=== PATIENT | female | born 1950 | race Caucasian/White ===

== ENCOUNTER → 2016-09-06 | Outpatient (CLI) | payer MEDICARE | LOC: RAD 08:29 | PROVIDERS: ATTEND Surgery | DX: K57.32 Diverticulitis of large intestine without perforation or abscess without bleeding (principal) | CPT/HCPCS: 74177; 82565 ==

== ENCOUNTER → 2017-07-03 | Outpatient (CLI) | payer MEDICARE ==
--- NOTE | 2017-07-03 14:14 | RADIOLOGY REPORT (SQ) ---
EXAM DESCRIPTION: HIP RIGHT AP/LATERAL COMPLETED DATE/TIME: 07/03/2017 1:31 pm REASON FOR STUDY: TROCHANTERIC BURSITIS, RIGHT HIP (M70.61) M70.61 TROCHANTERIC BURSITIS, RIGHT HIP M54.2 CERVICALGIA M51.36 OTHER INTERVERTEBRAL DISC DEGENERATION, LUMBAR REGION COMPARISON: None. NUMBER OF VIEWS: Two views. TECHNIQUE: AP pelvis and additional frog-leg view of the right hip. LIMITATIONS: None. FINDINGS: MINERALIZATION: Normal. RIGHT HIP: No acute fracture dislocation. Degenerative changes are identified with subcortical cysti c changes being identified. LEFT HIP: No fracture or dislocation. No worrisome bone lesions. PUBIS AND ISCHIUM: No fracture. PELVIS: No fracture. SACRUM: No fracture or dislocation. No worrisome bone lesions. LOWER LUMBAR SPINE: No fracture or dislocation. No worrisome bone lesions. No significant disc disea se. SOFT TISSUES: No findings. OTHER: No other significant finding. IMPRESSION: No acute fracture or dislocation. Degenerative changes in the right hip articulation as noted above. Other findings as noted TECHNICAL DOCUMENTATION: JOB ID: [id number] [employer]- All Rights Reserved
--- NOTE | 2017-07-03 14:18 | RADIOLOGY REPORT (SQ) ---
EXAM DESCRIPTION: CERV SP 4 OR 5 VIEWS COMPLETED DATE/TIME: 07/03/2017 1:31 pm REASON FOR STUDY: CERVICALGIA (M54.2) M70.61 TROCHANTERIC BURSITIS, RIGHT HIP M54.2 CERVICALGIA M5 1.36 OTHER INTERVERTEBRAL DISC DEGENERATION, LUMBAR REGION COMPARISON: None. NUMBER OF VIEWS: Five views including obliques. TECHNIQUE: AP, lateral, obliques and odontoid radiographic images acquired of the cervical spine. LIMITATIONS: None. FINDINGS: MINERALIZATION: Normal. SEGMENTATION: Normal. ALIGNMENT: Normal. VERTEBRAE: Maintained height. No fracture or worrisome bone lesion. DISCS: Multilevel disc space narrowing with osteophytes, most pronounced at C4-C5 and C5-C6. POSTERIOR ELEMENTS: Pedicles and facets are intact. No posterior arch defects. Facet arthropathy is present. FORAMINA: Narrowed at the levels of maximal disc and facet disease. HARDWARE: None in the spine. PARASPINAL SOFT TISSUES: Normal. OTHER: No other significant finding. IMPRESSION: SPONDYLOSIS WITHOUT BONE LESION OR FRACTURE. TECHNICAL DOCUMENTATION: JOB ID: [id number] ([employer])- All Rights Reserved
--- NOTE | 2017-07-03 14:26 | RADIOLOGY REPORT (SQ) ---
EXAM DESCRIPTION: L SPINE WHOLE COMPLETED DATE/TIME: 07/03/2017 1:31 pm REASON FOR STUDY: LUMBAR DDD (M51.36) M70.61 TROCHANTERIC BURSITIS, RIGHT HIP M54.2 CERVICALGIA M5 1.36 OTHER INTERVERTEBRAL DISC DEGENERATION, LUMBAR REGION COMPARISON: None. NUMBER OF VIEWS: Five views including obliques. TECHNIQUE: AP, lateral, oblique, and sacral radiographic images acquired of the lumbar spine. LIMITATIONS: None. FINDINGS: MINERALIZATION: Normal. SEGMENTATION: Normal. No transitional anatomy. ALIGNMENT: There is some very minimal retrolisthesis of L4 in relation to L 5. The lumbar vertebra a re otherwise well-aligned. VERTEBRAE: Maintained height. No fracture or worrisome bone lesion. DISCS: There is some decrease in the L4-L5 disc space heights with associated osteophytic lipping. T here is some minimal anterior osteophytic lipping at other levels POSTERIOR ELEMENTS: Pedicles and facets are intact. No pars defect or posterior arch defects. HARDWARE: Surgical clips are identified in the right upper quadrant. PARASPINAL SOFT TISSUES: Normal. PELVIS: Intact as visualized. No fractures or worrisome bone lesions. SI joints intact. OTHER: No other significant finding. IMPRESSION: Minimal degenerative changes as noted above TECHNICAL DOCUMENTATION: JOB ID: [id number]- All Rights Reserved
== END ==
LOC: RAD 11:56
PROVIDERS: ATTEND Pain Medicine Pain Medicine
DX: M70.61 Trochanteric bursitis, right hip (principal); M54.2 Cervicalgia; M51.36 Other intervertebral disc degeneration, lumbar region
CPT/HCPCS: 72050; 72110

== ENCOUNTER 2018-04-16 05:52 | Day surgery (SDC) | payer MEDICARE ==
--- NOTE | 2018-04-09 20:23 | EKG REPORT ---
SEVERITY:- NORMAL ECG - SINUS RHYTHM : Confirmed by: Spencer Garcia 09-Apr-2018 20:22:40
[~2018-04-16 05:52] MED LIST: ACETAMINOPHEN 325 MG TABLET PO PRN; LACTATED RINGERS 1000 ML IV PRN; LIDOCAINE 0.5% INJ-PF (5 MG/ML) 50 ML SDV SUBCUT PRN
[2018-04-16] MEDS ORDERED: DIPHENHYDRAMINE HCL 50 MG/ML VIAL IV PRN ×2 (07:19→08:41)
[2018-04-16] MEDS ORDERED: FENTANYL CITRATE INJ/PF 100 MCG/2 ML AMPUL IV PRN ×6 (07:19→08:41)
[2018-04-16] MEDS ORDERED: PROMETHAZINE HCL INJ 25 MG/1 ML VIAL IV PRN ×4 (07:19→08:41)
[2018-04-16] MEDS ORDERED: ONDANSETRON HCL INJ/PF 4 MG/2 ML SDV IV PRN (08:41)
[2018-04-16] MEDS ORDERED: GLYCOPYRROLATE 1 MG/5 ML SYRINGE ONE (08:58)
--- NOTE | 2018-04-16 09:16 | Operative Report ---
Nonrecallable Operative Report DATE OF SURGERY: 04/16/18 PREOPERATIVE DIAGNOSIS: Screening for malignancy POSTOPERATIVE DIAGNOSIS: 1. Diverticulosis. 2. Large colon polyp in the cecum , removed piecemeal OPERATION: 1. Colonoscopy to the cecum. 2. Large cecal polyp, removed piecemeal. SURGEON: JEFFRY CORNEJO ANESTHESIA: LMAC TISSUE REMOVED OR ALTERED: Large colon polyp in the cecum, removed piecemeal COMPLICATIONS: 1. colonoscopy aborted early due to patient intolerance (the patient had multiple coughing fits and attempted to vomit). Due to these factors, it was felt most prudent to abort the colonoscopy early and repeat the exam in 3-6 months. 2. Poor visualization due to the patient's noncompliance with the bowel prep. ESTIMATED BLOOD LOSS: Minimal INTRAOPERATIVE FINDINGS: The patient did not complete her bowel prep. Visualization was poor. PROCEDURE: Procedure in detail: After informed consent was obtained, the patient was laid in the left lateral decubitus position in the operating room. The colonoscope was inserted up the rectum, sigmoid colon, descending colon, transverse colon, down the ascending colon, and into the cecum. The ileocecal valve and appendiceal orifice were identified. The prep was poor. There was a large amount of liquid stool retained inside the colon, adherent to the colonic wall. There were multiple diverticula noted throughout the exam. Once the cecum was reached, there was noted to be a large, frond-like polyp with a depressed, ulcerated center. This large polyp was removed in piecemeal fashion using hot snare polypectomy. A Erickson net was used to remove the polyp, as it would not suction through the scope. An attempt was made to reintroduce the scope to the cecum. The patient began having multiple coughing fits and attempted to vomit. Secondary to this, further colonoscopic examination was felt unwise. The scope was removed from the patient, and the procedure was concluded. All sponge , instrument, and needle counts were correct. Condition: Stable. Recommendation: Repeat colonoscopy in 3-6 months to evaluate the large cecal polyp, and evaluate the remainder of the colon.
--- NOTE | 2018-04-16 09:19 | Discharge Summary ---
Discharge Summary (SDC) - Discharge Final Diagnosis: Diverticulosis. Cecal polyp. Poor bowel prep. Date of Surgery: 04/16/18 Discharge Date: 04/16/18 Condition: Stable Treatment or Instructions: Discharge home. Diet as tolerated. Activity as tolerated. Follow-up with me in 2 weeks. Fiber supplement twice daily. Referrals: NANCY LANDAVERDE MD [Primary Care Provider] - Discharge Diet: As Tolerated Respiratory Treatments at Home: Deep Breathing/Coughing, Incentive Spirometer Discharge Activity: Activity As Tolerated, Balance Activity w/Rest Home Care Assistance: None Needed Report the Following to Your Physician Immediately: Shortness of Breath, Nausea , Vomiting, Increase in Pain, Fever over 101 Degrees, Unusual Bleeding
[2018-04-16 10:51] VITALS: BP 112/75
== END 2018-04-16 10:40 | disposition home or self-care (01) ==
LOC: END 05:52
PROVIDERS: ATTEND Surgery
DX: K57.30 Diverticulosis of large intestine without perforation or abscess without bleeding (principal); D12.0 Benign neoplasm of cecum; K58.2 Mixed irritable bowel syndrome; Z87.19 Personal history of other diseases of the digestive system; R53.82 Chronic fatigue, unspecified; E03.9 Hypothyroidism, unspecified; I10 Essential (primary) hypertension; M19.90 Unspecified osteoarthritis, unspecified site; K21.9 Gastro-esophageal reflux disease without esophagitis; Z87.891 Personal history of nicotine dependence; Z79.899 Other long term (current) drug therapy
CPT/HCPCS: 45385; 93005; 88305 ×2; 93010; J3490; 811

== ENCOUNTER 2018-04-26 08:23 | Emergency (ER) | payer MEDICARE ==
[2018-04-26 08:31] VITALS: BP 134/80
--- NOTE | 2018-04-26 08:52 | ER Document Report ---
ED General - General Chief Complaint: Foot Injury Stated Complaint: FOOT INJURY Time Seen by Provider: 04/26/18 08:44 Mode of Arrival: Ambulatory Information source: Patient Notes: 67-year-old female presents emergency department with complaints of right foot pain. Patient states that she was walking and believes she tripped last night. She fell down onto the ground. She states that she began having right foot pain afterwards. Patient states that she is unable to ambulate secondary to the pain. Patient states that there is some bruising to the right foot. She states that she is not on any anticoagulants. She denies any numbness or tingling. Patient has tried hydrocodone prior to arrival with minimal relief. TRAVEL OUTSIDE OF THE [place] IN LAST 30 DAYS: No - HPI Onset: Yesterday Onset/Duration: Sudden Quality of pain: Throbbing Severity: None Associated symptoms: None Exacerbated by: Standing, Movement, Walking Relieved by: Denies Similar symptoms previously: No Recently seen / treated by doctor: No - Related Data Allergies/Adverse Reactions: codeine Adverse Reaction (Severe, Verified 04/09/18 13:03) VOMITING meperidine [From Demerol] Adverse Reaction (Severe, Verified 04/09/18 13:03) severe migraine two or more doses Past Medical History - General Information source: Patient - Social History Smoking Status: Former Smoker Family History: Reviewed & Not Pertinent - Past Medical History Cardiac Medical History: Reports: Hx Hypertension - ON MEDS Denies: Hx Coronary Artery Disease, Hx Heart Attack Pulmonary Medical History: Reports: Hx Asthma - ?NO MEDS Denies: Hx Bronchitis, Hx COPD, Hx Pneumonia Neurological Medical History: Denies: Hx Cerebrovascular Accident, Hx Seizures Musculoskeletal Medical History: Reports Hx Arthritis - R HIP, BACK, NECK Past Surgical History: Reports: Hx Hysterectomy - Immunizations Hx Diphtheria, Pertussis, Tetanus Vaccination: Yes - NO BOOSTERS Hx Pneumococcal Vaccination: 07/07/16 Review of Systems - Review of Systems Constitutional: No symptoms reported EENT: No symptoms reported Cardiovascular: No symptoms reported Respiratory: No symptoms reported Gastrointestinal: No symptoms reported Genitourinary: No symptoms reported Musculoskeletal: Joint pain, Joint swelling Hematologic/Lymphatic: No symptoms reported Neurological/Psychological: No symptoms reported -: Yes All other systems reviewed and negative Physical Exam - Vital signs Vitals: Temp Pulse Resp BP Pulse Ox 97.7 F 78 16 134/80 H 98 04/26/18 08:30 04/26/18 08:30 04/26/18 08:30 04/26/18 08:30 04/26/18 08:30 - Notes Notes: PHYSICAL EXAMINATION: GENERAL: Well-appearing, well-nourished and in no acute distress. HEAD: Atraumatic, normocephalic. EYES: Pupils equal round and reactive to light, extraocular movements intact, conjunctiva are normal. ENT: Nares patent, oropharynx clear without exudates. Moist mucous membranes. NECK: Normal range of motion, supple without lymphadenopathy LUNGS: Breath sounds clear to auscultation bilaterally and equal. No wheezes rales or rhonchi. HEART: Regular rate and rhythm without murmurs Female : deferred Musculoskeletal: Tenderness to palpation of the right dorsum of the foot. 2+ dorsalis pedis and posterior tibialis pulses. NEUROLOGICAL: Cranial nerves grossly intact. Normal speech, normal gait. Normal sensory, motor exams PSYCH: Normal mood, normal affect. SKIN: Warm, Dry, normal turgor, contusion noted to the dorsum of the right foot. Course - Re-evaluation Re-evalutation: 04/26/18 10:22 XR obtained. Lisfrac fracture appreciated with minimal lateral subluxation. I contacted the orthopedic surgeon change control analyst, Dr. Fuller. He would like the patient splinted and placed on crutches. He says the patient will need surgery. He wants to wait for swelling to reduce prior to surgery. He will see the patient in the office this week. Patient already on hydrocodone for chronic pain. Patient took hydrocodone prior to arrival. Says she's allergic to pain medication other than hydrodone. Declines additional medication in the ED. Patient instructed to continue taking her hydrocodone for pain, to follow up with Dr. Fuller outpatient, and to return for worsening symptoms. - Vital Signs Vital signs: Temp Pulse Resp BP Pulse Ox 97.7 F 78 16 134/80 H 98 04/26/18 08:30 04/26/18 08:30 04/26/18 08:30 04/26/18 08:30 04/26/18 08:30 Discharge - Discharge Clinical Impression: Lisfranc fracture Condition: Good Disposition: HOME, SELF-CARE Instructions: Foot Fracture ([facility]) Referrals: NANCY LANDAVERDE MD [Primary Care Provider] - Follow up as needed JEAN BENNETT MD [ACTIVE STAFF] - Follow up as needed
--- NOTE | 2018-04-26 10:06 | RADIOLOGY REPORT (SQ) ---
EXAM DESCRIPTION: FOOT RIGHT COMPLETE COMPLETED DATE/TIME: 04/26/2018 9:39 am REASON FOR STUDY: trauma fell twisted right ankle, right ankle COMPARISON: None. NUMBER OF VIEWS: Three views. TECHNIQUE: AP, lateral and oblique radiographic images acquired of the right foot. LIMITATIONS: None. FINDINGS: MINERALIZATION: Normal. BONES: Distal tibia fibula talus calcaneus and tarsal bones appear intact there is an acute fracture at the base of the 2nd metatarsal, and at the bases of the 4th and 5th metatarsals worrisome for [place] injury. Moderate-sized plantar calcaneal spur JOINTS: No effusions. Normal alignment at the ankle mortise SOFT TISSUES: Mild medial and lateral soft tissue swelling soft tissue swelling. No foreign body. OTHER: No other significant finding. IMPRESSION: Acute fracture base of the 2nd metatarsal, and at the bases of the 4th and 5th metatarsa ls worrisome for Lisfranc injury. Ankle joint is intact. TECHNICAL DOCUMENTATION: JOB ID: [id number] [employer]- All Rights Reserved Reading location - IP/workstation name: [email or web address]
--- NOTE | 2018-04-26 10:08 | RADIOLOGY REPORT (SQ) ---
EXAM DESCRIPTION: ANKLE RIGHT COMPLETE COMPLETED DATE/TIME: 04/26/2018 9:39 am REASON FOR STUDY: trauma COMPARISON: None. NUMBER OF VIEWS: Three views. TECHNIQUE: AP, lateral, and oblique radiographic images acquired of the right foot LIMITATIONS: None. FINDINGS: MINERALIZATION: Normal. BONES: Acute fractures of the bases, 2nd 3rd 4th and 5th metatarsals from Lisfranc injury. JOINTS: Minimal lateral subluxation of the bases 2nd 3rd 4th and 5th metatarsals at the TMT joints. SOFT TISSUES: Diffuse forefoot soft tissue swelling. No foreign body. OTHER: Prominent plantar calcaneal spur IMPRESSION: Acute fractures of the bases of the 2nd 3rd 4th and 5th metatarsals. Minimal lateral subluxation of the 2nd 3rd 4th and 5th metatarsals at the TMT joints. TECHNICAL DOCUMENTATION: JOB ID: [id number] [employer]- All Rights Reserved Reading location - IP/workstation name: [email or web address]
== END 2018-04-26 11:01 | disposition home or self-care (01) ==
LOC: ER 08:23
PROC: 2W3SX1Z Immobilization of Right Foot using Splint (ICD-10-PCS; principal; 2018-04-26)
DX: S93.326A Dislocation of tarsometatarsal joint of unspecified foot, initial encounter (principal); M79.671 Pain in right foot; W01.0XXA Fall on same level from slipping, tripping and stumbling without subsequent striking against object, initial encounter; I10 Essential (primary) hypertension; Z79.899 Other long term (current) drug therapy
CPT/HCPCS: 99283

== ENCOUNTER 2018-05-21 05:36 | Inpatient (IN) | payer MEDICARE ==
[2018-05-15 11:24] LABS: HEMATOCRIT 38.7 % (36.0-47.0); HEMOGLOBIN 13.4 g/dL (12.0-15.5); MEAN CORPUSCULAR HGB CONC 34.7 g/dL (32.0-36.0); MEAN CORPUSCULAR VOLUME 89 fl (80-97); PLATELET COUNT 211 10^3/uL (150-450); RED BLOOD COUNT 4.33 10^6/uL (3.72-5.28); RED CELL DISTRIBUTION WIDTH 12.9 % (11.5-14.0); WHITE BLOOD COUNT 4.2 10^3/uL (4.0-10.5)
[2018-05-15 11:30] LABS: ALANINE AMINOTRANSFERASE 25 U/L (9-52); ALBUMIN 4.2 g/dL (3.5-5.0); ALKALINE PHOSPHATASE 94 U/L (38-126); ANION GAP 12 (5-19); ASPARTATE AMINO TRANSFERASE 24 U/L (14-36); BILIRUBIN,DIRECT 0.2 mg/dL (0.0-0.4); BLOOD UREA NITROGEN 11 mg/dL (7-20); CALCIUM 9.9 mg/dL (8.4-10.2); CARBON DIOXIDE 31 mmol/L (22-30); CHLORIDE 101 mmol/L (98-107); GLUCOSE 98 mg/dL (75-110); POTASSIUM 4.2 mmol/L (3.6-5.0); SODIUM 143.5 mmol/L (137-145); TOTAL PROTEIN 6.9 g/dL (6.3-8.2)
[2018-05-15 11:58] LABS: CARCINOEMBRYONIC ANTIGEN 3.9 ng/mL (<3.0)
--- NOTE | 2018-05-15 12:36 | RADIOLOGY REPORT (SQ) ---
EXAM DESCRIPTION: CHEST PA/LATERAL COMPLETED DATE/TIME: 05/15/2018 10:22 am REASON FOR STUDY: PRE-OP COMPARISON: None. EXAM PARAMETERS: NUMBER OF VIEWS: two views TECHNIQUE: Digital Frontal and Lateral radiographic views of the chest acquired. RADIATION DOSE: NA LIMITATIONS: none FINDINGS: LUNGS AND PLEURA: No opacities, masses or pneumothorax. No pleural effusion. MEDIASTINUM AND HILAR STRUCTURES: No masses or contour abnormalities. HEART AND VASCULAR STRUCTURES: Heart normal size. No evidence for failure. BONES: No acute findings. HARDWARE: Clips right upper quadrant post cholecystectomy OTHER: No other significant finding. IMPRESSION: NO SIGNIFICANT RADIOGRAPHIC FINDING IN THE CHEST. TECHNICAL DOCUMENTATION: JOB ID: [id number] [employer]- All Rights Reserved Reading location - IP/workstation name: [email or web address]
[~2018-05-21 05:36] MED LIST changes: -ACETAMINOPHEN 325 MG TABLET PO PRN; +CEFOXITIN SODIUM 2 GM in DEXTROSE 5%-WATER 100 ML IV PRN; +IBUPROFEN 800 MG in DEXTROSE 5%-WATER 250 ML IV PRN
[2018-05-21] MEDS ORDERED: BUPIVACAINE HCL 0.5 % INJ/PF 30 ML SDV ONE (06:48)
[2018-05-21] MEDS ORDERED: HYDROMORPHONE HCL INJ/PF 2 MG/ML AMPULE ONE (07:02)
[2018-05-21] MEDS ORDERED: FENTANYL CITRATE INJ/PF 100 MCG/2 ML AMPUL ONE (07:02)
[2018-05-21] MEDS ORDERED: PROPOFOL INJ 200 MG/20 ML VIAL IV ONE (07:03)
[2018-05-21] MEDS ORDERED: EPHEDRINE SULFATE INJ 50 MG/1 ML AMPULE ONE (07:03)
[2018-05-21] MEDS ORDERED: ACETAMINOPHEN 1,000 MG/100 ML RTUPB IV ONE (07:03)
[2018-05-21] MEDS ORDERED: LIDOCAINE 2% INJ-PF (20 MG/ML) 10 ML AMPUL ONE (07:03)
[2018-05-21] MEDS ORDERED: MIDAZOLAM 2 MG/2 ML INJ ONE (07:03)
[2018-05-21] MEDS ORDERED: PROMETHAZINE HCL INJ 25 MG/1 ML VIAL ONE (07:27)
[2018-05-21] MEDS ORDERED: FENTANYL CITRATE INJ/PF 100 MCG/2 ML AMPUL IV PRN ×3 (08:05)
[2018-05-21] MEDS ORDERED: DIPHENHYDRAMINE HCL 50 MG/ML VIAL IV PRN (08:05)
[2018-05-21] MEDS ORDERED: PROMETHAZINE HCL INJ 25 MG/1 ML VIAL IV PRN ×2 (08:05)
[2018-05-21] MEDS ORDERED: ONDANSETRON HCL INJ/PF 4 MG/2 ML SDV IV PRN (10:24)
[2018-05-21] MEDS ORDERED: HYDROMORPHONE HCL INJ/PF 2 MG/ML AMPULE IV PRN (10:31)
--- NOTE | 2018-05-21 10:53 | Operative Report ---
Nonrecallable Operative Report DATE OF SURGERY: 05/21/18 PREOPERATIVE DIAGNOSIS: Colon cancer of the cecum POSTOPERATIVE DIAGNOSIS: Same as above OPERATION: Laparoscopic right hemicolectomy SURGEON: JEFFRY CORNEJO ANESTHESIA: GA TISSUE REMOVED OR ALTERED: Right hemicolectomy COMPLICATIONS: None apparent ESTIMATED BLOOD LOSS: 25 cc PROCEDURE: Drains/implants: None. Procedure in detail: After informed consent was obtained, the patient was brought to the operating room and laid in the supine position. The area of the abdomen was prepped and draped in a normal sterile fashion. Incision was created in the supraumbilical position within the bounds of a previous scar. Dissection was carried through the subcutaneous tissue using sharp and blunt dissection. The linea alba fascia was incised sharply, the abdomen was entered sharply. The balloon trocar was inserted, and pneumoperitoneum was achieved. A suprapubic 5 mm trocar was placed as well as a left lower quadrant 12 mm trocar. Next attention was turned to lysing abdominal adhesions. There was omentum adherent to the anterior abdominal wall from the patient's prior surgeries. Once this was completed a right upper quadrant 5 mm trocar was placed. The cecum was grasped and retracted anteriorly. The right colic artery was then identified, dissected, and divided using the [place] stapling device. Next the harmonic scalpel was used to divide the mesentery of the small bowel up to the terminal ileum. The terminal ileum was then divided, again using the [place] 60 stapling device. Next the mesentery of the right colon was elevated away from the retroperitoneum. This was done with great care so as not to injure the kidney or duodenum. Next, the mesentery of the proximal transverse colon was divided using the harmonic scalpel. This was done with great care, so as not to injure the middle colic vessel. Once the mesentery was adequately freed, attention was turned to rotating the right colon medially and dividing the white line of [place]. This was done using the harmonic scalpel. Once the colon was adequately freed, the 12 mm balloon trocar was removed and the incision was extended enough to admit a medium [place] wound retractor. Next, the right colon was pulled out through the incision. The transverse colon was divided using the [place] 60 stapling device. The terminal ileum was brought in apposition to the transverse colon. An anastomosis was created between the 2 using the [place] 60 stapler. A crotch stitch x2 was placed using 3-0 Vicryl suture. The remaining defect was then closed using the [place] 60 stapler. The anastomosis was tested and found to be free of any leakage. The anastomosis was then returned to the abdominal cavity. Pneumoperitoneum was again achieved. The anastomosis was visualized in the abdomen using the laparoscopic camera. There were no twists or kinks in the small intestine. There was no active bleeding in the abdomen. Once this was confirmed, the 12 mm left lower quadrant trocar was removed. The defect was closed using 0 Vicryl suture in interrupted fashion using the Endo Close device. Once this was completed the 5 mm trochars were removed and the [place] wound retractor was unfurled. The retractor was removed. The midline fascia was closed using #1 PDS suture in simple running fashion. The overlying skin was closed using skin andrea. Dressings were placed, and the procedure was concluded. All sponge, instrument, and needle counts were correct x2. Condition: Stable.
[2018-05-21] MEDS: KETOROLAC TROMETHAMINE INJ/PF 30 MG/1 ML SDV IV SCH ×2 (13:54→21:19)
[2018-05-21] MEDS: GABAPENTIN 300 MG CAPSULE PO SCH ×2 (13:55→21:15)
[2018-05-21] MEDS ORDERED: PHENYLEPHRINE HCL INJ/PF 10 MG/1 ML SDV ONE (13:58)
[2018-05-21] MEDS ORDERED: SUCCINYLCHOLINE CHLORIDE INJ 200 MG/10 ML VIAL ONE (13:58)
[2018-05-21] MEDS ORDERED: NEOSTIGMINE METHYLSULFATE 10 MG/10 ML VIAL ONE (13:58)
[2018-05-21] MEDS ORDERED: GLYCOPYRROLATE 1 MG/5 ML SYRINGE ONE (13:58)
[2018-05-21] MEDS ORDERED: ROCURONIUM BROMIDE INJ 50 MG/5 ML VIAL IV ONE (13:58)
[2018-05-21] MEDS ORDERED: ONDANSETRON HCL INJ/PF 4 MG/2 ML SDV ONE (13:58)
[2018-05-21] MEDS ORDERED: DEXAMETHASONE SOD PHOSPHATE INJ 4 MG/1 ML VIAL ONE (13:58)
[2018-05-21] MEDS ORDERED: GABAPENTIN 300 MG CAPSULE PO SCH (14:00)
[2018-05-21] MEDS: CEFOXITIN SODIUM 2 GM in DEXTROSE 5%-WATER 100 ML IV SCH ×2 (16:24→23:29)
[2018-05-21] MEDS: OXYCODONE HCL IR 5 MG TABLET PO PRN ×2 (16:25→23:28)
[2018-05-21] MEDS ORDERED: METOPROLOL SUCCINATE 50 MG TAB.SR.24H PO SCH (18:00)
[2018-05-21] MEDS: DULOXETINE HCL 30 MG CAPSULE.DR PO SCH (18:27)
[2018-05-21] MEDS: FAMOTIDINE 20 MG TABLET PO SCH (21:15)
[2018-05-21] MEDS: METOPROLOL SUCCINATE 50 MG TAB.SR.24H PO SCH (21:15)
[2018-05-22] MEDS: GABAPENTIN 300 MG CAPSULE PO SCH ×3 (05:16→21:47)
[2018-05-22] MEDS: LEVOTHYROXINE SODIUM 0.15 MG TABLET PO SCH (05:16)
[2018-05-22] MEDS: KETOROLAC TROMETHAMINE INJ/PF 30 MG/1 ML SDV IV SCH ×3 (05:16→21:47)
[2018-05-22 06:46] LABS: ABSOLUTE LYMPHOCYTES (AUTO) 1.1 10^3/uL (0.5-4.7); ABSOLUTE MONOCYTES (AUTO) 0.6 10^3/uL (0.1-1.4); BASOPHILS % (AUTO) 0.1 % (0-2); HEMATOCRIT 36.1 % (36.0-47.0); HEMOGLOBIN 12.7 g/dL (12.0-15.5); LYMPHOCYTES % (AUTO) 11.4 % (13-45); MEAN CORPUSCULAR HEMOGLOBIN 31.1 pg (27.0-33.4); MEAN CORPUSCULAR HGB CONC 35.2 g/dL (32.0-36.0); MEAN CORPUSCULAR VOLUME 89 fl (80-97); MONOCYTES % (AUTO) 5.8 % (3-13); PLATELET COUNT 217 10^3/uL (150-450); RED BLOOD COUNT 4.07 10^6/uL (3.72-5.28); RED CELL DISTRIBUTION WIDTH 12.9 % (11.5-14.0); SEGMENTED NEUTROPHILS % (AUTO) 82.7 % (42-78); TOTAL CELLS COUNTED % (AUTO) 100 %; WHITE BLOOD COUNT 9.7 10^3/uL (4.0-10.5)
[2018-05-22 07:09] LABS: ANION GAP 12 (5-19); BLOOD UREA NITROGEN 10 mg/dL (7-20); CALCIUM 9.6 mg/dL (8.4-10.2); CARBON DIOXIDE 26 mmol/L (22-30); CHLORIDE 104 mmol/L (98-107); GLUCOSE 136 mg/dL (75-110); POTASSIUM 3.8 mmol/L (3.6-5.0); SODIUM 142.4 mmol/L (137-145)
[2018-05-22] MEDS: OXYCODONE HCL IR 5 MG TABLET PO PRN ×2 (08:48→18:16)
[2018-05-22] MEDS: FAMOTIDINE 20 MG TABLET PO SCH ×2 (09:47→21:47)
[2018-05-22] MEDS: METOPROLOL SUCCINATE 50 MG TAB.SR.24H PO SCH ×2 (09:47→21:47)
[2018-05-22] MEDS: ENOXAPARIN SODIUM INJ 40 MG/0.4 ML DISP.SYRIN SUBCUT SCH (09:47)
--- NOTE | 2018-05-22 15:26 | PDOC PROGRESS REPORT ---
Subjective Progress Note for:: 05/22/18 Reason For Visit: S/P LAP RIGHT HEMICOLECTOMY Physical Exam Vital Signs: Temp Pulse Resp BP Pulse Ox 97.4 F 76 16 128/77 H 98 05/22/18 11:57 05/22/18 11:57 05/22/18 11:57 05/22/18 11:57 05/22/18 11:57 Intake & Output 05/21/18 05/22/18 05/23/18 06:59 06:59 06:59 Intake Total 0 3472 Output Total 3450 Balance 0 22 Weight 86.18 kg 89.1 kg Results Laboratory Results: 05/22/18 05:51 05/22/18 05:51 05/22/18 05/22/18 05:51 05:51 WBC 9.7 RBC 4.07 Hgb 12.7 Hct 36.1 MCV 89 MCH 31.1 MCHC 35.2 RDW 12.9 Plt Count 217 Seg Neutrophils % 82.7 H Lymphocytes % 11.4 L Monocytes % 5.8 Eosinophils % 0.0 Basophils % 0.1 Absolute Neutrophils 8.0 Absolute Lymphocytes 1.1 Absolute Monocytes 0.6 Absolute Eosinophils 0.0 Absolute Basophils 0.0 Sodium 142.4 Potassium 3.8 Chloride 104 Carbon Dioxide 26 Anion Gap 12 BUN 10 Creatinine 0.80 Est GFR ( Amer) > 60 Est GFR (Non-Af Amer) > 60 Glucose 136 H Calcium 9.6 Impressions: Chest X-Ray 05/15/18 10:20 IMPRESSION: NO SIGNIFICANT RADIOGRAPHIC FINDING IN THE CHEST. Assessment & Plan - Diagnosis (1) Cecal cancer Is this a current diagnosis for this admission?: Yes - Plan Summary Plan Summary: This is a 67-year-old female status post laparoscopic right hemicolectomy for colon cancer. The patient is doing very well today. She denies any flatus, but she also denies any nausea or vomiting. She was afebrile overnight. We will remove her Webber catheter today. I have encouraged her to ambulate and use her incentive spirometer. Continue full liquids for now. Awaiting bowel function.
[2018-05-22] MEDS: DEXTROSE 5%-LACTATED RINGERS 1,000 ML IV PRN (17:05)
[2018-05-22] MEDS: DULOXETINE HCL 30 MG CAPSULE.DR PO SCH (18:14)
[2018-05-23] MEDS: OXYCODONE HCL IR 5 MG TABLET PO PRN (01:30)
[2018-05-23] MEDS: GABAPENTIN 300 MG CAPSULE PO SCH (06:04)
[2018-05-23] MEDS: KETOROLAC TROMETHAMINE INJ/PF 30 MG/1 ML SDV IV SCH (06:05)
[2018-05-23] MEDS: LEVOTHYROXINE SODIUM 0.15 MG TABLET PO SCH (06:05)
[2018-05-23] MEDS: DEXTROSE 5%-LACTATED RINGERS 1,000 ML IV PRN (06:09)
--- NOTE | 2018-05-23 07:58 | PDOC DISCHARGE SUMMARY ---
General - Admit/Disc Date/PCP Admission Date/Primary Care Provider: 05/21/18 05:36 NANCY LANDAVERDE MD Discharge Date: 05/23/18 - Discharge Diagnosis (1) Cecal cancer Is this a current diagnosis for this admission?: Yes - Additional Information Resuscitation Status: Full Code Discharge Diet: As Tolerated Discharge Activity: No Lifting Over 10 Pounds Home Medications: Duloxetine HCl [Cymbalta] 30 mg PO QPM 05/21/18 Gabapentin [Neurontin 300 mg Capsule] 300 mg PO Q8 05/21/18 Hydrocodone/Acetaminophen [[place] 10-325 mg Tablet] 1 tab PO Q6HP PRN 05/21/18 Levothyroxine Sodium 150 mcg PO Q6AM 05/21/18 Metoprolol Tartrate [Lopressor 50 mg Tablet] 50 mg PO BID 05/21/18 Verapamil HCl [Calan Sr 180 mg Tablet.sa] 180 mg PO DAILY 05/21/18 History of Present Illness History of Present Illness: CY LUCIANO is a 67 year old female admitted with right sided colon cancer. The patient was admitted for laparoscopic right hemicolectomy, which was performed on 05/21/2018. The patient tolerated the procedure well and was taken to the floor in stable condition. Hospital Course Hospital Course: After her surgery, the patient was admitted to the hospital floor. Patient was begun on full liquid diet on postoperative day 0. Patient began passing flatus on postoperative day #1. By postoperative day #2 the patient was tolerating a diet, ambulating, and passing flatus. Patient was requesting discharge home. At this time it was felt that she had reached maximal hospital benefit, and was fit for discharge. Physical Exam Vital Signs: Temp Pulse Resp BP Pulse Ox 98.4 F 73 17 114/68 96 05/23/18 04:00 05/23/18 07:00 05/23/18 04:00 05/23/18 04:00 05/23/18 04:00 Intake & Output 05/22/18 05/23/18 05/24/18 06:59 06:59 06:59 Intake Total 3472 1236 Output Total 3450 Balance 22 1236 Weight 89.1 kg 88.3 kg Results Laboratory Results: 05/22/18 05:51 05/22/18 05:51 Impressions: Chest X-Ray 05/15/18 10:20 IMPRESSION: NO SIGNIFICANT RADIOGRAPHIC FINDING IN THE CHEST. Qualifiers - * PATIENT BEING DISCHARGED WITH ANY OF THE FOLLOWING DIAGNOSIS: No Plan Time Spent: Less than 30 Minutes
[2018-05-23] MEDS: METOPROLOL SUCCINATE 50 MG TAB.SR.24H PO SCH (09:09)
[2018-05-23] MEDS: FAMOTIDINE 20 MG TABLET PO SCH (09:09)
[2018-05-23] MEDS: ENOXAPARIN SODIUM INJ 40 MG/0.4 ML DISP.SYRIN SUBCUT SCH (09:17)
[2018-05-23 09:43] VITALS: BP 155/82
== END 2018-05-23 10:30 | disposition home or self-care (01) | DRG 331 ==
LOC: INOR 05:36 → EDSTATUS 07:30 → 5 11:55
PROVIDERS: ADMIT Surgery; ATTEND Surgery
PROC: 0DTF4ZZ Resection of Right Large Intestine, Percutaneous Endoscopic Approach (ICD-10-PCS; principal; 2018-05-21 07:30)
DX: C18.0 Malignant neoplasm of cecum (principal); E03.9 Hypothyroidism, unspecified; I10 Essential (primary) hypertension; K21.9 Gastro-esophageal reflux disease without esophagitis; E78.5 Hyperlipidemia, unspecified; Z79.01 Long term (current) use of anticoagulants; Z79.899 Other long term (current) drug therapy; Z86.010 Personal history of colon polyps; Z87.891 Personal history of nicotine dependence; Z80.7 Family history of other malignant neoplasms of lymphoid, hematopoietic and related tissues; E66.9 Obesity, unspecified; Z68.31 Body mass index [BMI] 31.0-31.9, adult
CPT/HCPCS: 36415; 71046; 790; 80048; 80053; 82378; 85025; 85027; 88309; 94799; J0131; J0330; J0694; J1100; J1170; J1650; J1741; J1885; J2250; J2370; J2405; J2550; J2704; J3010; J3490; J7060

== ENCOUNTER 2018-06-17 07:54 | Day surgery (SDC) | payer MEDICARE ==
[~2018-06-17 07:54] MED LIST changes: +BUPIVACAINE HCL 0.25 % INJ/PF (2.5 MG/1 ML) 30 ML VIAL ONE; +CEFAZOLIN 2 GM/D5W RTU 2 GM/50 ML RTUPB IV PRN; -CEFOXITIN SODIUM 2 GM in DEXTROSE 5%-WATER 100 ML IV PRN; -IBUPROFEN 800 MG in DEXTROSE 5%-WATER 250 ML IV PRN; -LIDOCAINE 0.5% INJ-PF (5 MG/ML) 50 ML SDV SUBCUT PRN; +LIDOCAINE 1% INJ-PF (10 MG/ML) 30 ML SDV ONE
[2018-06-17] MEDS ORDERED: CEFAZOLIN 2 GM/D5W RTU 2 GM/50 ML RTUPB IV ONE (08:04)
[2018-06-17] MEDS ORDERED: FENTANYL CITRATE INJ/PF 100 MCG/2 ML AMPUL ONE (08:45)
[2018-06-17] MEDS ORDERED: MIDAZOLAM 2 MG/2 ML INJ ONE (08:45)
[2018-06-17] MEDS ORDERED: PROPOFOL INJ 200 MG/20 ML VIAL IV ONE (08:46)
[2018-06-17] MEDS ORDERED: MORPHINE SULFATE 10 MG/ML INJ IV PRN (09:51)
[2018-06-17] MEDS ORDERED: DIPHENHYDRAMINE HCL 50 MG/ML VIAL IV PRN (09:51)
[2018-06-17] MEDS ORDERED: PROMETHAZINE HCL INJ 25 MG/1 ML VIAL IV PRN ×2 (09:51)
[2018-06-17] MEDS ORDERED: FENTANYL CITRATE INJ/PF 100 MCG/2 ML AMPUL IV PRN ×2 (09:51)
--- NOTE | 2018-06-17 10:30 | Discharge Summary ---
Discharge Summary (SDC) - Discharge Final Diagnosis: Colon cancer Date of Surgery: 06/17/18 Discharge Date: 06/17/18 Condition: Fair Treatment or Instructions: Discharge home. Diet as tolerated. Activity: Nonstrenuous. Follow-up with me in 1 year. Referrals: NANCY LANDAVERDE MD [Primary Care Provider] - Discharge Diet: As Tolerated Respiratory Treatments at Home: Deep Breathing/Coughing, Incentive Spirometer Discharge Activity: Balance Activity w/Rest Home Care Assistance: None Needed Report the Following to Your Physician Immediately: Shortness of Breath, Nausea , Vomiting, Increase in Pain, Fever over 101 Degrees, Unusual Bleeding, Redness , Swelling, Warmth
--- NOTE | 2018-06-17 10:41 | Operative Report ---
Nonrecallable Operative Report DATE OF SURGERY: 06/17/18 PREOPERATIVE DIAGNOSIS: Colon cancer POSTOPERATIVE DIAGNOSIS: Colon Cancer OPERATION: 1. Ultrasound-guided central venous puncture. 2. Left internal jugular vein Mediport placement. SURGEON: JEFFRY CORNEJO ANESTHESIA: LMAC TISSUE REMOVED OR ALTERED: None COMPLICATIONS: None apparent ESTIMATED BLOOD LOSS: Minimal PROCEDURE: Drains/implants: Left internal jugular vein Mediport. Procedure in detail: After informed consent was obtained, the patient was brought to the operating room laid in the Trendelenburg position. The area of the neck and chest were prepped and draped in normal sterile fashion. The ultrasound was used to identify the left internal jugular vein. It is compressible with normal flow. Under direct ultrasound guidance, the supplied access needle was inserted into the vein. Dark venous, nonpulsatile blood was returned in the syringe. The wire was inserted easily into the vein. It was confirmed to be within the lumen of the vein using ultrasound and fluoroscopy. A separate incision was created in the left chest wall. The catheter was tunneled from the Mediport hub site to the needle insertion site. Once this was completed, the dilator and breakaway sheath were inserted over the wire under fluoroscopic guidance. The wire and dilator were removed, leaving the sheath within the superior vena cava. The catheter was placed into the sheath. The sheath was then pulled away, leaving the catheter within the SVC. The catheter was pulled back to an appropriate level. The catheter was trimmed and the Mediport hub was attached. The hub was buried in the pocket that was previously created. The hub was sutured to the chest wall using 3-0 Vicryl suture. The catheter was then aspirated and flushed with heparinized saline. It flushed very easily. The subcutaneous tissue was then closed using 3-0 Vicryl suture in simple running fashion. The overlying skin was closed using 4- 0 Vicryl Rapide suture in subcuticular fashion. A dressing was fashioned, and the procedure was concluded. All sponge, instrument, and needle counts were correct x2. Condition: Stable.
--- NOTE | 2018-06-17 11:18 | RADIOLOGY REPORT (SQ) ---
EXAM DESCRIPTION: CHEST SINGLE VIEW COMPLETED DATE/TIME: 06/17/2018 10:59 am REASON FOR STUDY: c-line COMPARISON: None. EXAM PARAMETERS: NUMBER OF VIEWS: One view. TECHNIQUE: Single frontal radiographic view of the chest acquired. RADIATION DOSE: NA LIMITATIONS: None. FINDINGS: LUNGS AND PLEURA: No opacities, masses or pneumothorax. No pleural effusion. MEDIASTINUM AND HILAR STRUCTURES: No masses. Contour normal. HEART AND VASCULAR STRUCTURES: Heart normal in size. Normal vasculature. BONES: No acute findings. HARDWARE: Left-sided Port-A-Cath is identified with its tip at the level of the superior vena cava P OTHER: No other significant finding. IMPRESSION: Left-sided Port-A-Cath is identified with its tip the level of the superior vena cava. No pneumothorax is seen. Other findings as noted above TECHNICAL DOCUMENTATION: JOB ID: [id number] [employer]- All Rights Reserved Reading location - IP/workstation name: [email or web address]
[2018-06-17 12:11] VITALS: BP 145/88
--- NOTE | 2018-06-17 14:04 | RADIOLOGY REPORT (SQ) ---
EXAM DESCRIPTION: FLUORO/CV PLACEMENT COMPLETED DATE/TIME: 06/17/2018 10:30 am REASON FOR STUDY: PORTACATH PLCMT ASST WITH FLUORO IN OR C18.0 MALIGNANT NEOPLASM OF CECUM COMPARISON: None. FLUOROSCOPY TIME: 0.5 minutes. 1 images saved to PACS. TECHNIQUE: Intra-operative images acquired during surgical procedure to evaluate progress. NUMBER OF IMAGES: 1 image. LIMITATIONS: None. FINDINGS: Images of the chest acquired during catheter placement. IMPRESSION: IMAGE(S) OBTAINED DURING PROCEDURE. COMMENT: Quality ID [id number]: Final reports for procedures using fluoroscopy that document radiation exp osure indices, or exposure time and number of fluorographic images (if radiation exposure indices are not available) Please consult full operative report of the attending physician for description of the procedure. TECHNICAL DOCUMENTATION: JOB ID: [id number] [employer]- All Rights Reserved Reading location - IP/workstation name: [email or web address]
== END 2018-06-17 12:05 | disposition home or self-care (01) ==
LOC: OROUT 07:54
PROVIDERS: ATTEND Surgery
DX: C18.0 Malignant neoplasm of cecum (principal); Z88.5 Allergy status to narcotic agent; R53.82 Chronic fatigue, unspecified; E03.9 Hypothyroidism, unspecified; I10 Essential (primary) hypertension; K21.9 Gastro-esophageal reflux disease without esophagitis; E78.5 Hyperlipidemia, unspecified; M19.90 Unspecified osteoarthritis, unspecified site; M94.0 Chondrocostal junction syndrome [Tietze]; Z86.010 Personal history of colon polyps; K58.2 Mixed irritable bowel syndrome; Z87.19 Personal history of other diseases of the digestive system; Z79.899 Other long term (current) drug therapy; Z01.818 Encounter for other preprocedural examination; E66.9 Obesity, unspecified
CPT/HCPCS: 36561; 71045; 77001; C1788; J2250; J3010; J3490; J2704; J0690; J1642; 532

== ENCOUNTER → 2018-06-18 | Outpatient (CLI) | payer MEDICARE ==
--- NOTE | 2018-06-18 11:39 | RADIOLOGY REPORT (SQ) ---
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 TECHNIQUE: CT scan of the chest performed using helical scanning technique with dynamic intravenous contrast injection. Images reviewed with lung, soft tissue and bone windows. Reconstructed coronal and sagittal MPR and MIP images reviewed. All images stored on PACS. All CT scanners at this facility use dose modulation, iterative reconstruction, and/or weight based d osing when appropriate to reduce radiation dose to as low as reasonably achievable (ALARA). [facility]: Dose Right [facility]: CareDose [facility]: Dose Right [facility]: Teradose 4D [facility]: [email or web address] CONTRAST TYPE AND DOSE: See separate report. RENAL FUNCTION: See separate report. RADIATION DOSE: . LIMITATIONS: None. FINDINGS: LUNGS AND PLEURA: No opacities, nodules, masses. No pneumothorax. No effusions. HILAR AND MEDIASTINAL STRUCTURES: No identified masses or abnormal nodes. HEART AND VASCULAR STRUCTURES: No aneurysm or dissection. No central pulmonary emboli. No pericardi al effusion. HARDWARE: None in the chest. UPPER ABDOMEN: See separate report of the CT of the abdomen. THYROID AND OTHER SOFT TISSUES: No masses. No adenopathy. BONES: No acute findings. OTHER: Left-sided port tip in the SVC. IMPRESSION: No evidence of metastatic disease. TECHNICAL DOCUMENTATION: JOB ID: [id number] Quality ID # [id number]: Final reports with documentation of one or more dose reduction techniques (e.g., Au tomated exposure control, adjustment of the mA and/or kV according to patient size, use of iterative reconstruction technique) 2010 [employer]- All Rights Reserved Reading location - IP/workstation name: [email or web address]
--- NOTE | 2018-06-18 11:57 | RADIOLOGY REPORT (SQ) ---
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 No oral contrast. Images reviewed with lung, soft tissue, and bone windows. Reconstructed coronal and sagittal MPR images reviewed. Delayed images for evaluation of the urinary system also acquired. All images stored on PACS. All CT scanners at this facility use dose modulation, iterative reconstruction, and/or weight based d osing when appropriate to reduce radiation dose to as low as reasonably achievable (ALARA). [facility]: Dose Right [facility]: CareDose [facility]: Dose Right [facility]: Teradose 4D [facility]: [employer] CONTRAST TYPE AND DOSE: contrast/concentration: Isovue 350.00 mg/ml; Total Contrast Delivered: 93.0 ml; Total Saline Delivered: 71.0 ml RENAL FUNCTION: GFR > 60. RADIATION DOSE: CT Rad equipment meets quality standard of care and radiation dose reduction techniq ues were employed. CTDIvol: 9.8 - 14.9 mGy. DLP: 1940 mGy-cm.. LIMITATIONS: None. FINDINGS: LOWER CHEST: See separate report of the CT of the chest. LIVER: Chronic biliary dilatation status post cholecystectomy, stable. No liver mass. SPLEEN: Normal size. No focal lesions. PANCREAS: No masses. No significant calcifications. No adjacent inflammation or peripancreatic fluid collections. Pancreatic duct not dilated. GALLBLADDER: Surgically absent. ADRENAL GLANDS: No significant masses or asymmetry. RIGHT KIDNEY AND URETER: No solid masses. No significant calcifications. No hydronephrosis or hyd roureter. LEFT KIDNEY AND URETER: No solid masses. No significant calcifications. No hydronephrosis or hydr oureter. AORTA AND VESSELS: No aneurysm. No dissection. Renal arteries, SMA, celiac without stenosis. RETROPERITONEUM: No retroperitoneal adenopathy, hemorrhage or masses. BOWEL AND PERITONEAL CAVITY: Right hemicolectomy. Colonic diverticulosis. No ascites, adenopathy or free air. APPENDIX: Surgically absent. PELVIS: No mass. No free fluid. Normal bladder. ABDOMINAL WALL: Postsurgical changes. No significant hernia. BONES: No acute findings. OTHER: No other significant finding. IMPRESSION: No evidence of local recurrence or metastatic disease. TECHNICAL DOCUMENTATION: JOB ID: [id number] Quality ID # 436: Final reports with documentation of one or more dose reduction techniques (e.g., Au tomated exposure control, adjustment of the mA and/or kV according to patient size, use of iterative reconstruction technique) 2010 [employer]- All Rights Reserved Reading location - IP/workstation name: [email or web address]
== END ==
LOC: RAD 11:29
PROVIDERS: ATTEND Internal Medicine
DX: C18.2 Malignant neoplasm of ascending colon (principal)
CPT/HCPCS: 71260; 74177

== ENCOUNTER 2018-06-26 10:02 | Outpatient (CLI) | payer MEDICARE ==
[2018-06-26 10:26] VITALS: BP 131/71
[2018-06-26] MEDS: NORMAL SALINE 250 ML IV PRN (10:46)
[2018-06-26] MEDS: FERUMOXYTOL (NON-ESRD) 510 MG/NS 100 ML IV PRN ×2 (10:46)
== END 2018-06-26 11:40 | disposition home or self-care (01) ==
LOC: 5TH 10:02 → II 10:02
PROVIDERS: ATTEND Internal Medicine
DX: Z51.11 Encounter for antineoplastic chemotherapy (principal)
CPT/HCPCS: 96367; Q0138

== ENCOUNTER 2018-07-03 10:38 | Outpatient (CLI) | payer MEDICARE ==
[~2018-07-03 10:38] MED LIST changes: -BUPIVACAINE HCL 0.25 % INJ/PF (2.5 MG/1 ML) 30 ML VIAL ONE; -CEFAZOLIN 2 GM/D5W RTU 2 GM/50 ML RTUPB IV PRN; +FERUMOXYTOL (NON-ESRD) 510 MG/NS 100 ML IV PRN; -LACTATED RINGERS 1000 ML IV PRN; -LIDOCAINE 1% INJ-PF (10 MG/ML) 30 ML SDV ONE; +NORMAL SALINE 250 ML IV PRN
[2018-07-03 11:48] VITALS: BP 125/77
== END 2018-07-03 12:30 | disposition home or self-care (01) ==
LOC: II 10:38 → 5TH 10:43 → II 12:30
PROVIDERS: ATTEND Internal Medicine
PROC: 3E043GC Introduction of Other Therapeutic Substance into Central Vein, Percutaneous Approach (ICD-10-PCS; principal; 2018-07-03)
DX: Z76.89 Persons encountering health services in other specified circumstances (principal)
CPT/HCPCS: 96367; Q0138; 96365

== ENCOUNTER 2018-07-08 07:39 | Outpatient (CLI) | payer MEDICARE ==
[~2018-07-08 07:39] MED LIST changes: +CONTAINER EMPTY IV PRN; +DEXAMETHASONE SOD PHOSPHATE 10 MG in NORMAL SALINE 50 ML IV PRN; +DEXTROSE 5% IV PRN; +DEXTROSE 5%-WATER 250 ML IV PRN; +DISPOSABLE IV PRN; -FERUMOXYTOL (NON-ESRD) 510 MG/NS 100 ML IV PRN; +FLUOROURACIL IV PRN; +LEUCOVORIN CALCIUM IV PRN; -NORMAL SALINE 250 ML IV PRN; +OXALIPLATIN IV PRN; +PALONOSETRON 0.25 MG/5 ML SDV IV PRN; +WATER IV PRN
[2018-07-08 08:18] VITALS: BP 114/68
== END 2018-07-08 12:02 | disposition home or self-care (01) ==
LOC: II 07:39 → 5TH 07:40 → II 12:02
PROVIDERS: ATTEND Internal Medicine
PROC: 3E04305 Introduction of Other Antineoplastic into Central Vein, Percutaneous Approach (ICD-10-PCS; principal; 2018-07-08)
PROC: 3E0433Z Introduction of Anti-inflammatory into Central Vein, Percutaneous Approach (ICD-10-PCS; 2018-07-08)
PROC: 3E043GC Introduction of Other Therapeutic Substance into Central Vein, Percutaneous Approach (ICD-10-PCS; 2018-07-08)
DX: Z51.11 Encounter for antineoplastic chemotherapy (principal); C18.2 Malignant neoplasm of ascending colon
CPT/HCPCS: 96409; 96413; 96415; 96416; 96367; 96375; 96417; J0640; A9270; J9190; J7060; J3490; J1100; J9263; J2469

== ENCOUNTER 2018-07-22 08:30 | Outpatient (CLI) | payer MEDICARE ==
[2018-07-22 09:03] VITALS: BP 128/56
== END 2018-07-22 14:39 | disposition home or self-care (01) ==
LOC: II 08:30 → 5TH 08:32 → II 14:39
PROVIDERS: ATTEND Internal Medicine
PROC: 3E04305 Introduction of Other Antineoplastic into Central Vein, Percutaneous Approach (ICD-10-PCS; principal; 2018-07-22)
PROC: 3E0433Z Introduction of Anti-inflammatory into Central Vein, Percutaneous Approach (ICD-10-PCS; 2018-07-22)
PROC: 3E043GC Introduction of Other Therapeutic Substance into Central Vein, Percutaneous Approach (ICD-10-PCS; 2018-07-22)
DX: Z51.11 Encounter for antineoplastic chemotherapy (principal); C18.2 Malignant neoplasm of ascending colon
CPT/HCPCS: 96409; 96411; 96413; 96415; 96416; 96367; 96374; 96375; 96360; A4222; J0640; A9270; J9190; J7060; J3490; J1100; J9263; J2469; 96368; 96417

== ENCOUNTER 2018-08-12 09:56 | Outpatient (CLI) | payer MEDICARE, OTHER ==
[~2018-08-12 09:56] MED LIST changes: -CONTAINER EMPTY IV PRN; +FLUOROURACIL 4,656 MG in CONTAINER,EMPTY 1 EACH IV PRN
[2018-08-12 10:37] VITALS: BP 128/83
== END 2018-08-12 14:39 | disposition home or self-care (01) ==
LOC: II 09:56 → 5TH 09:57 → II 14:39
PROVIDERS: ATTEND Internal Medicine
PROC: 3E04305 Introduction of Other Antineoplastic into Central Vein, Percutaneous Approach (ICD-10-PCS; principal; 2018-08-12)
PROC: 3E0433Z Introduction of Anti-inflammatory into Central Vein, Percutaneous Approach (ICD-10-PCS; 2018-08-12)
PROC: 3E043GC Introduction of Other Therapeutic Substance into Central Vein, Percutaneous Approach (ICD-10-PCS; 2018-08-12)
DX: Z51.11 Encounter for antineoplastic chemotherapy (principal); C18.2 Malignant neoplasm of ascending colon
CPT/HCPCS: 96409; 96413; 96415; 96416; 96367; 96375; 96417; A4222; J0640; A9270; J9190; J7060; J3490; J1100; J9263; J2469; 96368; 96411

== ENCOUNTER 2018-09-09 08:16 | Outpatient (CLI) | payer MEDICARE, OTHER ==
[~2018-09-09 08:16] MED LIST changes: +CONTAINER EMPTY IV PRN; +DEXMEDETOMIDINE IN NS 400 MCG/100 ML RTUPB IV PRN; -FLUOROURACIL 4,656 MG in CONTAINER,EMPTY 1 EACH IV PRN; +FOSAPREPITANT DIMEGLUMINE 150 MG in NORMAL SALINE 150 ML IV PRN
[2018-09-09 09:24] VITALS: BP 122/68
== END 2018-09-09 13:00 | disposition home or self-care (01) ==
LOC: II 08:16 → 5TH 08:18 → II 13:00
PROVIDERS: ATTEND Internal Medicine
PROC: 3E04305 Introduction of Other Antineoplastic into Central Vein, Percutaneous Approach (ICD-10-PCS; principal; 2018-09-09)
PROC: 3E0433Z Introduction of Anti-inflammatory into Central Vein, Percutaneous Approach (ICD-10-PCS; 2018-09-09)
PROC: 3E043GC Introduction of Other Therapeutic Substance into Central Vein, Percutaneous Approach (ICD-10-PCS; 2018-09-09)
DX: Z51.11 Encounter for antineoplastic chemotherapy (principal); C18.2 Malignant neoplasm of ascending colon
CPT/HCPCS: 96409; 96413; 96415; 96416; 96367; 96374; 96375; 96360; 96417; A4222; A9270; J9190; J7060; J3490; J1100; J1453; J9263; J2469; 96368

== ENCOUNTER 2018-09-23 08:12 | Outpatient (CLI) | payer MEDICARE, OTHER ==
[~2018-09-23 08:12] MED LIST changes: -DEXAMETHASONE SOD PHOSPHATE 10 MG in NORMAL SALINE 50 ML IV PRN; -DEXMEDETOMIDINE IN NS 400 MCG/100 ML RTUPB IV PRN; +ONDANSETRON HCL/PF 8 MG, DEXAMETHASONE SOD PHOSPHATE 10 MG in NORMAL SALINE 50 ML IV PRN; -PALONOSETRON 0.25 MG/5 ML SDV IV PRN
[2018-09-23 09:08] VITALS: BP 130/79
== END 2018-09-23 12:33 | disposition home or self-care (01) ==
LOC: II 08:12 → 5TH 08:51 → II 12:33
PROVIDERS: ATTEND Internal Medicine
PROC: 3E04305 Introduction of Other Antineoplastic into Central Vein, Percutaneous Approach (ICD-10-PCS; principal; 2018-09-23)
PROC: 3E043GC Introduction of Other Therapeutic Substance into Central Vein, Percutaneous Approach (ICD-10-PCS; 2018-09-23)
DX: Z51.11 Encounter for antineoplastic chemotherapy (principal); C18.2 Malignant neoplasm of ascending colon
CPT/HCPCS: 96409; 96413; 96415; 96416; 96365; 96366; 96417; A4222; A9270; J9190; J2405; J7060; J3490; J1100; J1453; J9263; 96367; 96368; 96411

== ENCOUNTER 2018-10-07 07:39 | Outpatient (CLI) | payer MEDICARE, OTHER ==
[2018-10-07] MEDS ORDERED: ONDANSETRON HCL/PF 8 MG, DEXAMETHASONE SOD PHOSPHATE 10 MG in NORMAL SALINE 50 ML IV PRN (08:00)
[2018-10-07] MEDS ORDERED: FOSAPREPITANT DIMEGLUMINE 150 MG in NORMAL SALINE 150 ML IV PRN (08:00)
[2018-10-07] MEDS ORDERED: DEXTROSE 5% IV PRN ×2 (08:00)
[2018-10-07] MEDS ORDERED: FLUOROURACIL IV PRN (08:00)
[2018-10-07] MEDS ORDERED: DEXTROSE 5%-WATER 250 ML IV PRN (08:00)
[2018-10-07] MEDS ORDERED: WATER IV PRN ×2 (08:00)
[2018-10-07] MEDS ORDERED: CONTAINER EMPTY IV PRN (08:00)
[2018-10-07] MEDS ORDERED: LEUCOVORIN CALCIUM IV PRN (08:00)
[2018-10-07] MEDS ORDERED: OXALIPLATIN IV PRN (08:00)
[2018-10-07 08:50] VITALS: BP 125/77
== END 2018-10-07 13:13 | disposition home or self-care (01) ==
LOC: II 07:39 → 5TH 07:45 → II 13:13
PROVIDERS: ATTEND Internal Medicine
PROC: 3E04305 Introduction of Other Antineoplastic into Central Vein, Percutaneous Approach (ICD-10-PCS; principal; 2018-10-07)
PROC: 3E043GC Introduction of Other Therapeutic Substance into Central Vein, Percutaneous Approach (ICD-10-PCS; 2018-10-07)
DX: Z51.11 Encounter for antineoplastic chemotherapy (principal); C18.2 Malignant neoplasm of ascending colon
CPT/HCPCS: 96413; 96415; 96416; 96367; 96417; 77080; A4222; A9270; J9190; J2405; J7060; J1100; J1453; J9263; 96368; 96411; J3490

== ENCOUNTER → 2018-10-07 | Outpatient (CLI) | payer MEDICARE, OTHER ==
--- NOTE | 2018-10-07 13:34 | WOMENS IMAGING REPORT ---
EXAM DESCRIPTION: BONE DENSITY HIP/SPINE COMPLETED DATE/TIME: 10/07/2018 1:11 pm REASON FOR STUDY: Z78.0 ASYMPTOMATIC MENOPAUSAL STATE Z78.0 ASYMPTOMATIC MENOPAUSAL STATE COMPARISON: None. TECHNIQUE: Dual-Energy X-ray Absorptiometry (DEXA) of the AP Spine and Hip. LIMITATIONS: None. FINDINGS: LUMBAR SPINE: The bone mineral density (BMD) measured from L1-L4 in the AP projection correlates with a T-score of 1.2, which is normal as defined by the World Health Organization. HIP: The bone mineral density (BMD) measured in the left hip correlates with a T-score of -0.6, which is n ormal as defined by the World Health Organization. IMPRESSION: 1. LUMBAR SPINE: NORMAL. 2. HIP: NORMAL. COMMENT: The World Health Organization defines low BMD as follows: T-score: Normal: Greater than -1.0 Osteopenia: Between -1.0 and -2.5 Osteoporosis: Less than -2.5 without fractures Established osteoporosis: Less than -2.5 with fractures In general, you may wish to consider: Diagnosis Treatment Follow-up DEXA Normal BMD Prevention 2-3 years Osteopenia Prevention/Therapy 1-2 years Osteoporosis Therapy Yearly TECHNICAL DOCUMENTATION: JOB ID: [id number] [employer]- All Rights Reserved Reading location - IP/workstation name: [email or web address]
== END ==
LOC: WI 12:51
PROVIDERS: ATTEND Internal Medicine
DX: Z78.0 Asymptomatic menopausal state (principal)
CPT/HCPCS: 77080

== ENCOUNTER → 2018-10-16 | Outpatient (CLI) | payer MEDICARE, OTHER ==
--- NOTE | 2018-10-16 11:46 | RADIOLOGY REPORT (SQ) ---
EXAM DESCRIPTION: CT CHEST WITH; CT ABD/PELVIS WITH IV ONLY COMPLETED DATE/TIME: 10/16/2018 9:35 am REASON FOR STUDY: COLON CA C18.2 MALIGNANT NEOPLASM OF ASCENDING COLON COMPARISON: 06/18/2018. CONTRAST TYPE AND DOSE: contrast/concentration: Isovue 350.00 mg/ml; Total Contrast Delivered: 96.0 ml; Total Saline Delivered: 71.0 ml RENAL FUNCTION: Creatinine 0.9 TECHNIQUE: CT scan of the chest performed using helical scanning technique with dynamic intravenous contrast injection. Images reviewed with lung, soft tissue and bone windows. Reconstructed coronal a nd sagittal MPR images reviewed. All images stored on PACS. CT scan of the abdomen and pelvis performed with intravenous and with oral contrastusing helical scan michael technique with dynamic intravenous contrast injection. Images reviewed with lung, soft tissue a nd bone windows. Reconstructed coronal and sagittal MPR images reviewed. Delayed images for evaluat ion of the urinary system also acquired and evaluated. All images stored on PACS. All CT scanners at this facility use dose modulation, iterative reconstruction, and/or weight based d osing when appropriate to reduce radiation dose to as low as reasonably achievable (ALARA). [facility]: Dose Right [facility]: CareDose [facility]: Dose Right [facility]: Teradose 4D [facility]: [employer] RADIATION DOSE: CT Rad equipment meets quality standard of care and radiation dose reduction techniq ues were employed. CTDIvol: 8.8 - 11.9 mGy. DLP: 1646 mGy-cm. . LIMITATIONS: None. FINDINGS: CHEST: LUNGS AND PLEURA: No opacities, nodules, masses. No pneumothorax. No effusions. HILAR AND MEDIASTINAL STRUCTURES: No identified masses or abnormal nodes. HEART AND VASCULAR STRUCTURES: No aneurysm or dissection. No central pulmonary emboli. No pericardi al effusion. HARDWARE: Left port. THYROID AND OTHER SOFT TISSUES: Probably atrophic. Suspect left lobe inferior pole calcified nodule. No axillary adenopathy. No chest wall or breast mass suggested. BONES: No significant finding. OTHER: No other significant finding. ABDOMEN AND PELVIS: LIVER: Intrahepatic duct dilatation, unchanged. No developing lesions. SPLEEN: Normal size. No focal lesions. PANCREAS: No masses. No significant calcifications. No adjacent inflammation or peripancreatic fluid collections. Pancreatic duct not dilated. GALLBLADDER: Surgically absent. ADRENAL GLANDS: No significant masses or asymmetry. RIGHT KIDNEY AND URETER: No solid masses. No significant calcification. No hydronephrosis or hydroure ter. LEFT KIDNEY AND URETER: No solid masses. No significant calcification. No hydronephrosis or hydrouret er. AORTA AND VESSELS: No aneurysm. No dissection. Renal arteries, SMA, celiac without stenosis. RETROPERITONEUM: No retroperitoneal adenopathy, hemorrhage or masses. BOWEL AND PERITONEAL CAVITY: Partial colectomy. Minimal regional scarring with tiny chronic right lo wer lobe subcentimeter lymph nodes. No clearly enlarged nodes or implants. No wall thickening or ev idence of bowel obstruction. No ascites or abnormal gas. APPENDIX: Surgically absent. ABDOMINAL WALL: No masses. No hernias. PELVIS: No mass or free fluid. Normal bladder. BONES: No significant or acute findings. OTHER: No other significant finding. IMPRESSION: 1. Normal chest CT. No acute or suspicious abnormality. 2. No acute or suspicious abdominopelvic abnormality. Postoperative changes status post proximal par tial colectomy with associated findings as above. TECHNICAL DOCUMENTATION: JOB ID: [id number] Quality ID # 436: Final reports with documentation of one or more dose reduction techniques (e.g., Au tomated exposure control, adjustment of the mA and/or kV according to patient size, use of iterative reconstruction technique) 2010 [employer]- All Rights Reserved Reading location - IP/workstation name: [email or web address]
== END ==
LOC: RAD 08:55
PROVIDERS: ATTEND Internal Medicine
DX: C18.2 Malignant neoplasm of ascending colon (principal)
CPT/HCPCS: 71260; 74177

== ENCOUNTER 2018-11-04 08:31 | Outpatient (CLI) | payer MEDICARE, OTHER ==
[~2018-11-04 08:31] MED LIST changes: +DEXAMETHASONE SOD PHOSPHATE IV PRN; -DISPOSABLE IV PRN; +FOSAPREPITANT 150 MG in NS 150 ML IV PRN; -FOSAPREPITANT DIMEGLUMINE 150 MG in NORMAL SALINE 150 ML IV PRN; +NORMAL SALINE IV PRN; +ONDANSETRON HCL IV PRN; -ONDANSETRON HCL/PF 8 MG, DEXAMETHASONE SOD PHOSPHATE 10 MG in NORMAL SALINE 50 ML IV PRN
[2018-11-04 09:07] VITALS: BP 125/50
== END 2018-11-04 12:23 | disposition home or self-care (01) ==
LOC: II 08:31 → 5TH 08:33 → II 12:23
PROVIDERS: ATTEND Internal Medicine
PROC: 3E04305 Introduction of Other Antineoplastic into Central Vein, Percutaneous Approach (ICD-10-PCS; principal; 2018-11-04)
PROC: 3E0433Z Introduction of Anti-inflammatory into Central Vein, Percutaneous Approach (ICD-10-PCS; 2018-11-04)
PROC: 3E043GC Introduction of Other Therapeutic Substance into Central Vein, Percutaneous Approach (ICD-10-PCS; 2018-11-04)
DX: Z51.11 Encounter for antineoplastic chemotherapy (principal); C18.2 Malignant neoplasm of ascending colon
CPT/HCPCS: 96413; 96415; 96416; 96367; 96374; 96360; 96417; A4222; A9270; J9190; J2405; J7060; J1100; J1453; J9263; 96368; J1642; J3490; J7050

== ENCOUNTER 2018-11-06 11:38 | Outpatient (CLI) | payer MEDICARE, OTHER ==
[~2018-11-06 11:38] MED LIST changes: -CONTAINER EMPTY IV PRN; -DEXAMETHASONE SOD PHOSPHATE IV PRN; -DEXTROSE 5% IV PRN; -DEXTROSE 5%-WATER 250 ML IV PRN; -FLUOROURACIL IV PRN; -FOSAPREPITANT 150 MG in NS 150 ML IV PRN; -LEUCOVORIN CALCIUM IV PRN; +NORMAL SALINE 1000 ML 1,000 ML IV PRN; -NORMAL SALINE IV PRN; -ONDANSETRON HCL IV PRN; -OXALIPLATIN IV PRN; -WATER IV PRN
== END 2018-11-06 11:40 | disposition home or self-care (01) ==
LOC: 5TH 11:38 → II 11:38
PROVIDERS: ATTEND Internal Medicine
DX: C18.2 Malignant neoplasm of ascending colon (principal); Z51.11 Encounter for antineoplastic chemotherapy; E86.0 Dehydration

== ENCOUNTER 2018-11-18 08:22 | Outpatient (CLI) | payer MEDICARE, OTHER ==
[~2018-11-18 08:22] MED LIST changes: +CONTAINER EMPTY IV PRN; +DEXAMETHASONE SOD PHOSPHATE IV PRN; +DEXTROSE 5% IV PRN; +DEXTROSE 5%-WATER 250 ML IV PRN; +FLUOROURACIL IV PRN; +FOSAPREPITANT 150 MG in NS 150 ML IV PRN; +LEUCOVORIN CALCIUM IV PRN; -NORMAL SALINE 1000 ML 1,000 ML IV PRN; +NORMAL SALINE IV PRN; +ONDANSETRON HCL IV PRN; +OXALIPLATIN IV PRN; +WATER IV PRN
[2018-11-18 09:08] VITALS: BP 129/82
== END 2018-11-18 14:43 | disposition home or self-care (01) ==
LOC: II 08:22 → 5TH 08:23 → II 14:43
PROVIDERS: ATTEND Internal Medicine
DX: Z51.11 Encounter for antineoplastic chemotherapy (principal); C18.2 Malignant neoplasm of ascending colon
CPT/HCPCS: 96413; 96415; 96416; 96367; 96374; 96360; 96417; A9270; J9190; J2405; J7060; J7050; J1100; J1642; J1453; J9263; J3490

== ENCOUNTER 2018-11-20 12:22 | Outpatient (CLI) | payer MEDICARE, OTHER ==
[~2018-11-20 12:22] MED LIST changes: -CONTAINER EMPTY IV PRN; -DEXAMETHASONE SOD PHOSPHATE IV PRN; -DEXTROSE 5% IV PRN; -DEXTROSE 5%-WATER 250 ML IV PRN; -FLUOROURACIL IV PRN; -FOSAPREPITANT 150 MG in NS 150 ML IV PRN; -LEUCOVORIN CALCIUM IV PRN; +NORMAL SALINE 1000 ML 1,000 ML IV PRN; -NORMAL SALINE IV PRN; -ONDANSETRON HCL IV PRN; -OXALIPLATIN IV PRN; -WATER IV PRN
== END 2018-11-20 13:31 | disposition home or self-care (01) ==
LOC: 5TH 12:22 → II 12:22
PROVIDERS: ATTEND Internal Medicine
PROC: 3E0437Z Introduction of Electrolytic and Water Balance Substance into Central Vein, Percutaneous Approach (ICD-10-PCS; principal; 2018-11-20)
DX: E86.0 Dehydration (principal); C18.2 Malignant neoplasm of ascending colon
CPT/HCPCS: 96360

== ENCOUNTER 2018-12-02 08:16 | Outpatient (CLI) | payer MEDICARE, OTHER ==
[~2018-12-02 08:16] MED LIST changes: +CONTAINER EMPTY IV PRN; +DEXAMETHASONE SOD PHOSPHATE IV PRN; +DEXTROSE 5% IV PRN; +DEXTROSE 5%-WATER 250 ML IV PRN; +FLUOROURACIL IV PRN; +FOSAPREPITANT 150 MG in NS 150 ML IV PRN; +LEUCOVORIN CALCIUM IV PRN; -NORMAL SALINE 1000 ML 1,000 ML IV PRN; +NORMAL SALINE IV PRN; +ONDANSETRON HCL IV PRN; +OXALIPLATIN IV PRN; +WATER IV PRN
[2018-12-02 09:41] VITALS: BP 106/52
== END 2018-12-02 14:14 | disposition home or self-care (01) ==
LOC: II 08:16 → 5TH 08:19 → II 14:14
PROVIDERS: ATTEND Internal Medicine
PROC: 3E04305 Introduction of Other Antineoplastic into Central Vein, Percutaneous Approach (ICD-10-PCS; principal; 2018-12-02)
PROC: 3E0433Z Introduction of Anti-inflammatory into Central Vein, Percutaneous Approach (ICD-10-PCS; 2018-12-02)
PROC: 3E043GC Introduction of Other Therapeutic Substance into Central Vein, Percutaneous Approach (ICD-10-PCS; 2018-12-02)
DX: Z51.11 Encounter for antineoplastic chemotherapy (principal); C18.2 Malignant neoplasm of ascending colon
CPT/HCPCS: 96413; 96415; 96416; 96367; 96374; 96360; 96417; A4222; A9270; J9190; J2405; J7060; J7050; J1100; J1642; J1453; J9263; 96368; 96375; J3490

== ENCOUNTER 2018-12-16 07:28 | Outpatient (CLI) | payer MEDICARE, OTHER ==
[2018-12-16] MEDS ORDERED: DEXTROSE 5% IV PRN ×2 (08:00)
[2018-12-16] MEDS ORDERED: FLUOROURACIL IV PRN (08:00)
[2018-12-16] MEDS ORDERED: WATER IV PRN ×2 (08:00)
[2018-12-16] MEDS ORDERED: CONTAINER EMPTY IV PRN (08:00)
[2018-12-16] MEDS ORDERED: DEXTROSE 5%-WATER 250 ML IV PRN (08:00)
[2018-12-16] MEDS ORDERED: FOSAPREPITANT 150 MG in NS 150 ML IV PRN (08:00)
[2018-12-16] MEDS ORDERED: LEUCOVORIN CALCIUM IV PRN (08:00)
[2018-12-16] MEDS ORDERED: ONDANSETRON HCL IV PRN (08:00)
[2018-12-16] MEDS ORDERED: OXALIPLATIN IV PRN (08:00)
[2018-12-16] MEDS ORDERED: DEXAMETHASONE SOD PHOSPHATE IV PRN (08:00)
[2018-12-16] MEDS ORDERED: NORMAL SALINE IV PRN (08:00)
[2018-12-16 09:13] VITALS: BP 126/71
== END 2018-12-16 13:01 | disposition home or self-care (01) ==
LOC: II 07:28 → 5TH 07:30 → II 13:01
PROVIDERS: ATTEND Internal Medicine
PROC: 3E04305 Introduction of Other Antineoplastic into Central Vein, Percutaneous Approach (ICD-10-PCS; principal; 2018-12-16)
PROC: 3E0433Z Introduction of Anti-inflammatory into Central Vein, Percutaneous Approach (ICD-10-PCS; 2018-12-16)
PROC: 3E043GC Introduction of Other Therapeutic Substance into Central Vein, Percutaneous Approach (ICD-10-PCS; 2018-12-16)
DX: Z51.11 Encounter for antineoplastic chemotherapy (principal); C18.2 Malignant neoplasm of ascending colon
CPT/HCPCS: 96413; 96415; 96416; 96367; 96368; A4222; A9270; J9190; J2405; J7060; J7050; J1100; J1642; J1453; J9263; 96360; 96374; 96417; J3490

== ENCOUNTER → 2018-12-28 | Outpatient (CLI) | payer MEDICARE, OTHER ==
--- NOTE | 2018-12-28 15:00 | WOMENS IMAGING REPORT ---
EXAM DESCRIPTION: 3D SCREENING MAMMO BILAT COMPLETED DATE/TIME: 12/28/2018 2:06 pm REASON FOR STUDY: Z12.31 ENCOUNTER FOR SCREENING MAMMOGRAM FOR MALIGNANT NEOPLASM OF BREAST Z12.31 ENCNTR SCREEN MAMMOGRAM FOR MALIGNANT NEOPLASM OF AMA COMPARISON: [id number] EXAM PARAMETERS: Views: Standard craniocaudal and mediolateral oblique views of each breast recorded using digital acquisition and breast tomosynthesis. Read with the assistance of CAD. .[facility] - R2 [employer] Version 9.2 LIMITATIONS: None. FINDINGS: No suspicious masses, suspicious calcifications or architectural distortion. No areas of c oncern. IMPRESSION: NEGATIVE MAMMOGRAM. BIRADS 1. BREAST DENSITY: b. There are scattered areas of fibroglandular density. BIRAD: ASSESSMENT: 1 NEGATIVE RECOMMENDATION: ROUTINE SCREENING COMMENT: The patient has been notified of the results by letter per MQSA requirements. Additional no tification policies are in place for contacting patient with suspicious or incomplete findings. Quality ID #225: The [employer] recommends an annual screening mammogram for women aged 40 years or over. This facility utilizes a reminder system to ensure that all patients receive reminder letters, and/or direct phone calls for appointments. This includes reminders for routine scr eening mammograms, diagnostic mammograms, or other Breast Imaging Interventions when appropriate. Th is patient will be placed in the appropriate reminder system. TECHNICAL DOCUMENTATION: FINDING NUMBER: (1) ASSESSMENT: (1) JOB ID: [id number] [employer]- All Rights Reserved Reading location - IP/workstation name: [email or web address]
== END ==
LOC: WI 13:54
PROVIDERS: ATTEND Family Medicine
DX: Z12.31 Encounter for screening mammogram for malignant neoplasm of breast (principal)
CPT/HCPCS: 77063; 77067

== ENCOUNTER → 2019-03-20 | Outpatient (CLI) | payer MEDICARE, OTHER ==
--- NOTE | 2019-03-21 19:27 | RADIOLOGY REPORT (SQ) ---
EXAM DESCRIPTION: MRI RT LOWER EXTREMITY WITHOUT COMPLETED DATE/TIME: 03/20/2019 2:56 pm REASON FOR STUDY: DISLOCATION OF TARSOMETATARSAL JT OF RIGHT FOOT S93.324S S93.324S DISLOCATION OF TARSOMETATARSAL JOINT OF RIGHT FOOT, COMPARISON: Plain radiograph 01/15/2019 TECHNIQUE: T1-weighted, T2-weighted, and gradient echo noncontrast multiplanar imaging of the right foot. LIMITATIONS: None. FINDINGS: MARROW SIGNAL: Healing fractures of the seconds, 3rd, 4th, 5th distal metatarsals. There is also a fracture of the base of the seconds metatarsal resulting in lateral displacement of the sec onds through 5th metatarsals, Lisfranc fracture. Scattered areas of bone bruising through the metata rsals and tarsal bones. JOINT EFFUSION: No significant effusions. PLANTAR FASCIA: Normal as visualized. TARSOMETATARSAL AND TOE ARTICULATIONS: Lateral displacement of the seconds through 5th metatarsals wi th respect to the tarsal bones. INTERMETATARSAL SPACES AND PLANTAR PLATES: Intact. No soft tissue mass to suggest a neuroma. SOFT TISSUES: Generalized soft tissue swelling. OTHER: No other significant finding. IMPRESSION: Homolateral lis franc fx with fracture of the base of the seconds metatarsal and resulti ng lateral displacement of the seconds through 5th metatarsals with respect to the tarsal bones. Mul tiple scattered areas of bone bruising. There also fractures of the seconds through 5th metatarsal heads. TECHNICAL DOCUMENTATION: JOB ID: [id number] [employer]- All Rights Reserved Reading location - IP/workstation name: [email or web address]
== END ==
LOC: RAD 14:11
PROVIDERS: ATTEND Podiatrist
DX: S93.324S Dislocation of tarsometatarsal joint of right foot, sequela (principal); X58.XXXS Exposure to other specified factors, sequela

== ENCOUNTER → 2019-04-07 | Outpatient (CLI) | payer MEDICARE, OTHER ==
[2019-04-07 10:11] LABS: CHOLESTEROL 128.38 mg/dL (0-200); TRIGLYCERIDES 122 mg/dL (<150)
[2019-04-07 10:21] LABS: DIRECT LDL 47 mg/dL (<100)
== END ==
LOC: OD 08:53
PROVIDERS: ATTEND Internal Medicine
DX: I10 Essential (primary) hypertension (principal); E78.5 Hyperlipidemia, unspecified; R53.83 Other fatigue
CPT/HCPCS: 36415; 80061; 84443

== ENCOUNTER 2019-06-24 08:11 | Day surgery (SDC) | payer MEDICARE, OTHER ==
[~2019-06-24 08:11] MED LIST changes: -CONTAINER EMPTY IV PRN; -DEXAMETHASONE SOD PHOSPHATE IV PRN; -DEXTROSE 5% IV PRN; -DEXTROSE 5%-WATER 250 ML IV PRN; -FLUOROURACIL IV PRN; -FOSAPREPITANT 150 MG in NS 150 ML IV PRN; -LEUCOVORIN CALCIUM IV PRN; -NORMAL SALINE IV PRN; -ONDANSETRON HCL IV PRN; -OXALIPLATIN IV PRN; +PROPOFOL INJ 200 MG/20 ML VIAL IV ONE; -WATER IV PRN
--- NOTE | 2019-06-24 08:46 | EKG REPORT ---
SEVERITY:- OTHERWISE NORMAL ECG - SINUS RHYTHM BORDERLINE LEFT AXIS DEVIATION : Confirmed by: Spencer Garcia 24-Jun-2019 08:45:51
[2019-06-24] MEDS ORDERED: DIPHENHYDRAMINE HCL 50 MG/ML VIAL ONE (09:04)
--- NOTE | 2019-06-24 09:23 | Discharge Summary ---
Discharge Summary (SDC) - Discharge Final Diagnosis: Normal screening colonoscopy. Date of Surgery: 06/24/19 Discharge Date: 06/24/19 Condition: Stable Treatment or Instructions: Discharge home. Diet as tolerated. Activity: As tolerated. Follow-up with me in 2 weeks. Referrals: NANCY LANDAVERDE MD [Primary Care Provider] - Discharge Diet: As Tolerated Respiratory Treatments at Home: Deep Breathing/Coughing, Incentive Spirometer Discharge Activity: Activity As Tolerated Home Care Assistance: None Needed Report the Following to Your Physician Immediately: Shortness of Breath, Nausea, Vomiting, Increase in Pain, Yellow Skin, Fever over 101 Degrees, Unusual Bleeding
--- NOTE | 2019-06-24 09:26 | Operative Report ---
Nonrecallable Operative Report DATE OF SURGERY: 06/24/19 PREOPERATIVE DIAGNOSIS: History of colon cancer, status post right hemicolectomy. POSTOPERATIVE DIAGNOSIS: 1. Diverticulosis. 2. Patent ileocolic anastomosis. 3. Normal screening colonoscopy. 4. History of colon cancer, status post r ight hemicolectomy. OPERATION: Colonoscopy to the ileocolic anastomosis. SURGEON: JEFFRY CORNEJO ANESTHESIA: LMAC TISSUE REMOVED OR ALTERED: None COMPLICATIONS: None apparent ESTIMATED BLOOD LOSS: Minimal PROCEDURE: Drains/implants: None. Procedure in detail: After informed consent was obtained, the patient was brought to the operating room and laid in the left lateral decubitus position. The endoscope was passed up the rectum, sigmoid colon, descending colon, across the transverse colon, to the ileocolic anastomosis. The ileocolic anastomosis appeared patent. The prep was fair. Multiple washings and suctionings were required in order to visualize the entirety of the mucosa. This was successful. The scope was withdrawn past the transverse colon, down the descending colon, sigmoid colon, and into the rectum. There were scattered diverticula found throughout the remaining colon. There was no sign of active diverticulitis. There were no polyps, tumors, cancers, ulcerations, or signs of bleeding. A retroflexion maneuver was performed in the rectum, noting small internal hemorrhoids that were not bleeding. The scope was straightened, air was suctioned from the rectum, the scope was removed, and the procedure was concluded. Condition: Stable. Recommendation: Repeat colonoscopy in 1 to 3 years due to a personal history of colon cancer.
[2019-06-24 10:23] VITALS: BP 132/68
== END 2019-06-24 10:40 | disposition home or self-care (01) ==
LOC: END 08:11
PROVIDERS: ATTEND Surgery
DX: Z85.038 Personal history of other malignant neoplasm of large intestine (principal); Z88.5 Allergy status to narcotic agent; K57.30 Diverticulosis of large intestine without perforation or abscess without bleeding; I10 Essential (primary) hypertension; Z90.49 Acquired absence of other specified parts of digestive tract
CPT/HCPCS: 45378; 93005; 93010; J1200; J2704; J1642; 812

== ENCOUNTER → 2019-08-19 | Outpatient (CLI) | payer MEDICARE, OTHER ==
--- NOTE | 2019-08-19 11:11 | RADIOLOGY REPORT (SQ) ---
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 Images reviewed with lung, soft tissue and bone windows. Reconstructed coronal and sagittal MPR and MIP images reviewed. All images stored on PACS. All CT scanners at this facility use dose modulation, iterative reconstruction, and/or weight based d osing when appropriate to reduce radiation dose to as low as reasonably achievable (ALARA). [facility]: Dose Right [facility]: CareDose [facility]: Dose Right [facility]: Teradose 4D [facility]: [email or web address] CONTRAST TYPE AND DOSE: 98 mL Omnipaque 350- low osmolar. RENAL FUNCTION: Creatinine 0.9 RADIATION DOSE: . LIMITATIONS: None. FINDINGS: LUNGS AND PLEURA: No opacities, nodules, masses. No pneumothorax. No effusions. HILAR AND MEDIASTINAL STRUCTURES: No identified masses or abnormal nodes. HEART AND VASCULAR STRUCTURES: No aneurysm or dissection. No central pulmonary emboli. No pericardi al effusion. HARDWARE: None in the chest. UPPER ABDOMEN: No significant findings. Limited exam. THYROID AND OTHER SOFT TISSUES: No masses. No adenopathy. BONES: No significant finding. OTHER: No other significant finding. IMPRESSION: NORMAL CT OF THE CHEST WITH IV CONTRAST. TECHNICAL DOCUMENTATION: JOB ID: [id number] Quality ID # 436: Final reports with documentation of one or more dose reduction techniques (e.g., Au tomated exposure control, adjustment of the mA and/or kV according to patient size, use of iterative reconstruction technique) 2010 [employer]- All Rights Reserved Reading location - IP/workstation name: [email or web address]
--- NOTE | 2019-08-19 11:17 | RADIOLOGY REPORT (SQ) ---
EXAM DESCRIPTION: CT ABD/PELVIS WITH IV ONLY COMPLETED DATE/TIME: 08/19/2019 9:26 am REASON FOR STUDY: COLON CA (C18.3) C18.3 MALIGNANT NEOPLASM OF HEPATIC FLEXURE COMPARISON: 01/25/2019 TECHNIQUE: CT scan of the abdomen and pelvis performed using helical scanning technique with dynamic intravenous contrast injection. No oral contrast. Images reviewed with lung, soft tissue, and bone windows. Reconstructed coronal and sagittal MPR images reviewed. Delayed images for evaluation of the urinary system also acquired. All images stored on PACS. All CT scanners at this facility use dose modulation, iterative reconstruction, and/or weight based d osing when appropriate to reduce radiation dose to as low as reasonably achievable (ALARA). [facility]: Dose Right [facility]: CareDose [facility]: Dose Right [facility]: Teradose 4D [facility]: The Moment CONTRAST TYPE AND DOSE: contrast/concentration: Isovue 350.00 mg/ml; Total Contrast Delivered: 98.0 ml; Total Saline Delivered: 72.0 ml RENAL FUNCTION: Creatinine 0.9 RADIATION DOSE: CT Rad equipment meets quality standard of care and radiation dose reduction techniq ues were employed. CTDIvol: 10.3 - 15.3 mGy. DLP: 2133 mGy-cm.. LIMITATIONS: None. FINDINGS: LOWER CHEST: See separate report of the CT of the chest. LIVER: No masses. Mild intrahepatic and extrahepatic ductal dilatation. SPLEEN: Normal size. No focal lesions. PANCREAS: No masses. No significant calcifications. No adjacent inflammation or peripancreatic fluid collections. Pancreatic duct not dilated. GALLBLADDER: Surgically absent. ADRENAL GLANDS: No significant masses or asymmetry. RIGHT KIDNEY AND URETER: No solid masses. No significant calcifications. No hydronephrosis or hyd roureter. LEFT KIDNEY AND URETER: No solid masses. No significant calcifications. No hydronephrosis or hydr oureter. AORTA AND VESSELS: No aneurysm. No dissection. Renal arteries, SMA, celiac without stenosis. RETROPERITONEUM: No retroperitoneal adenopathy, hemorrhage or masses. BOWEL AND PERITONEAL CAVITY: Partial colectomy. No obvious bowel mass. APPENDIX: Surgically absent. PELVIS: No mass. No free fluid. Normal bladder. ABDOMINAL WALL: No masses. No hernias. BONES: No significant or acute findings. OTHER: No other significant finding. IMPRESSION: No evidence of metastatic disease in the abdomen or pelvis. Ductal dilatation is likely secondary to prior cholecystectomy. TECHNICAL DOCUMENTATION: JOB ID: [id number] Quality ID # [id number]: Final reports with documentation of one or more dose reduction techniques (e.g., Au tomated exposure control, adjustment of the mA and/or kV according to patient size, use of iterative reconstruction technique) 2010 [email or web address]- All Rights Reserved Reading location - IP/workstation name: [email or web address]
== END ==
LOC: RAD 08:43
PROVIDERS: ATTEND Physician Assistant Medical
DX: C18.3 Malignant neoplasm of hepatic flexure (principal)
CPT/HCPCS: 71260; 74177; 82565